=== PATIENT | male | born 1945 | race Hispanic/Latino ===

== ENCOUNTER 2017-10-08 13:58 | Observation (INO) | payer MEDICARE ==
[~2017-10-08] VITALS: Ht 170.2 cm; Wt 97.2 kg
[2017-10-08 14:44] LABS: BILIRUBIN,URINE NEGATIVE (NEGATIVE); CLARITY,URINE SL CLOUDY (CLEAR); COLOR,URINE YELLOW (YELLOW); KETONES,URINE NEGATIVE (NEGATIVE); LEUKOCYTE ESTERASE ,URINE NEGATIVE (NEGATIVE); NITRITE,URINE NEGATIVE (NEGATIVE); PROTEIN,URINE DIPSTICK NEGATIVE (NEGATIVE); URINE UROBILINOGEN 0.2 mg/dL (0.2 - 1)
[2017-10-08 15:27] LABS: BASOPHILS % 0.3 % (0.0-1.0); EOSINOPHILS # (AUTO) 0.1 (0.0-0.4); EOSINOPHILS % 1.7 % (0.0-6.0); HEMATOCRIT 36.9 % (38.2-49.6); HEMOGLOBIN 12.4 g/dL (14.0-18.0); LYMPHOCYTES # (AUTO) 1.1 (1.0-3.2); LYMPHOCYTES % 19.1 % (18.0-39.1); MEAN CORPUSCULAR HGB CONC 33.6 g/dL (31-35); MEAN CORPUSCULAR VOLUME 89.1 fL (81-99); MONOCYTES # (AUTO) 0.3 (0.2-0.8); MONOCYTES % 5.2 % (4.4-11.3); NEUTROPHILS # (AUTO) 4.3 (2.1-6.9); NEUTROPHILS % 73.4 % (38.7-80.0); PLATELET COUNT 219 x10e3/uL (140-360); RED BLOOD COUNT 4.14 x10e6/uL (4.3-5.7); RED CELL DISTRIBUTION WIDTH 13.2 % (11.7-14.4)
[2017-10-08 15:31] LABS: INR 1.03; PROTHROMBIN TIME 12.7 seconds (11.9-14.5)
[2017-10-08 15:32] LABS: PARTIAL THROMBOPLASTIN TIME 26.6 seconds (23.8-35.5)
[2017-10-08 15:39] LABS: ALANINE AMINOTRANSFERASE 29 IU/L (0-55); ALBUMIN 3.6 g/dL (3.5-5.0); ALBUMIN/GLOBULIN RATIO 1.2 (0.8-2.0); ALKALINE PHOSPHATASE 57 IU/L (40-150); ANION GAP 12.8 mmol/L (8-16); BLOOD UREA NITROGEN 15 mg/dL (7-26); BUN/CREATININE RATIO 15 (6-25); CALCIUM 9.3 mg/dL (8.4-10.2); CARBON DIOXIDE 22 mmol/L (22-29); CHLORIDE 107 mmol/L (98-107); CREATINE KINASE 538 IU/L (30-200); EST GLOMERULAR FILTRATION RATE > 60 ML/MIN (60-); GLUCOSE 133 mg/dL (74-118); POTASSIUM 3.8 mmol/L (3.5-5.1); SODIUM 138 mmol/L (136-145)
--- NOTE | 2017-10-08 16:40 | Diagnostic Imaging Report ---
PROCEDURE: A single AP view of the chest. COMPARISON: None. INDICATIONS: NAUSEA, DIARRHEA, FLANK PAIN FINDINGS: Lines/tubes: None. Lungs: The lungs are well-inflated. Mild central pulmonary venous congestion. Mild chronic scarring in the lung bases with possible interstitial lung disease. Pleura: There is no pleural effusion or pneumothorax. Heart and mediastinum: The heart and the mediastinum are unremarkable. Aorta is tortuous. Bones: No acute bony abnormality. IMPRESSION: Mild central pulmonary venous congestion. Mild chronic scarring in the lung bases with possible interstitial lung disease. Dictated by: Jay Barajas M.D. on 10/08/2017 at 16:43 Electronically approved by: Jay Barajas M.D. on 10/08/2017 at 16:43
--- NOTE | 2017-10-08 16:58 | Diagnostic Imaging Report ---
PROCEDURE: CT ABDOMEN AND PELVIS WITH CONTRAST TECHNIQUE: The abdomen and pelvis were scanned utilizing a multidetector helical scanner from the diaphragm to the lesser trochanter after the IV administration of 100 cc of Isovue 370 and the oral administration of water. Coronal and sagittal multiplanar reformations were obtained. COMPARISON: None. INDICATIONS: RT FLANK PAIN FINDINGS: LOWER THORAX: Bibasilar atelectasis especially in the right lower lobe. HEPATOBILIARY: Diffuse hepatic steatosis. 3 benign appearing cysts in the liver. 2.1 cm segment 2 (series 2 image 16). 1.8 cm in segment 4B (series 2 image 21). 1.6 cm in segment IVb (series 2 image 27). No biliary ductal dilatation. SPLEEN: No splenomegaly. PANCREAS: No focal masses or ductal dilatation. ADRENALS: No adrenal nodules. KIDNEYS/URETERS: No hydronephrosis, stones, or solid mass lesions. PELVIC ORGANS/BLADDER: Prostate measures 6.9 cm in transverse dimension with median lobe hypertrophy. Bladder is normal.. PERITONEUM / RETROPERITONEUM: No free air or fluid. LYMPH NODES: No lymphadenopathy. VESSELS: Mild mixed plaque in the abdominal aorta.. GI TRACT: No distention or wall thickening. Scattered colonic diverticula in the descending colon and sigmoid colon without evidence of diverticulitis. Small sliding hiatal hernia. BONES AND SOFT TISSUES: Small fat-containing umbilical hernia. Small fat-containing right inguinal hernia. Degenerative changes in lumbar spine. IMPRESSION: 1. No acute abnormalities identified in the abdomen or pelvis. 2. Small sliding hiatal hernia. 3. Diffuse hepatic steatosis. 4. Scattered colonic diverticula without evidence of diverticulitis. 5. Prostate is enlarged and with median lobe hypertrophy. 6. Right lower lobe atelectasis. Dictated by: aJy Barajas M.D. on 10/08/2017 at 17:01 Electronically approved by: Jay Barajas M.D. on 10/08/2017 at 17:01
[2017-10-08] MEDS ORDERED: ENOXAPARIN INJ 80 MG/0.8 ML SYR SC STA (17:37)
[2017-10-08] MEDS ORDERED: ASPIRIN 325 MG TAB PO ONE (17:45)
--- OUTSIDE RECORDS SUMMARY | 2017-10-08 17:57 | XMS REPORT ---
Author [facility] Address Unknown Phone Unavailable Care Team Providers Care Continuous Drier Operator Name Role Phone MARE CERVANTES Unavailable Unavailable Problems This patient has no known problems. Allergies, Adverse Reactions, Alerts This patient has no known allergies or adverse reactions. Medications This patient has no known medications. Results Test Description Test Time Test Comments Text Results Atomic Results Result Comments CT ABDOMEN/PELVIS W 2017-10-08 17:01:00 [place] [address] Patient Name: SARA OSHEA MR #: [id number] : 1945 Age/Sex: 72/M Req #: [id number] Adm Physician: Ordered by: GABBY ALVARADO NP Report #: [id number] Location: ER Room/Bed: _ Procedure: [id number] CT/CT ABDOMEN/PELVIS W Exam Date: 10/08/17 Exam Time: 1615 REPORT STATUS: Signed PROCEDURE: CT ABDOMEN AND PELVIS WITH CONTRAST TECHNIQUE: The abdomen and pelvis were scanned utilizing a multidetector helical scanner from the diaphragm to the lesser trochanter after the IV administration of 100 cc of Isovue 370 and the oral administration of water. Coronal and sagittal multiplanar reformations were obtained. COMPARISON: None. INDICATIONS: RT FLANK PAIN FINDINGS: LOWER THORAX: Bibasilar atelectasis especially in the right lower lobe. HEPATOBILIARY: Diffuse hepatic steatosis. 3 benign appearing cysts in the liver. 2.1 cm segment 2 (series 2 image 16). 1.8 cm in segment 4B (series 2 image 21). 1.6 cm in segment IVb (series 2 image 27). No biliary ductal dilatation. SPLEEN: No splenomegaly. PANCREAS: No focal masses or ductal dilatation. ADRENALS: No adrenal nodules. KIDNEYS/URETERS: No hydronephrosis, stones, or solid mass lesions. PELVIC ORGANS/BLADDER: Prostate measures 6.9 cm in transverse dimension with median lobe hypertrophy. Bladder is normal.. PERITONEUM / RETROPERITONEUM : No free air or fluid. LYMPH NODES: No lymphadenopathy. VESSELS: Mild mixed plaque in the abdominal aorta.. GI TRACT: No distention or wall thickening. Scattered colonic diverticula in the descending colon and sigmoid colon without evidence of diverticulitis. Small sliding hiatal hernia. BONES AND SOFT TISSUES: Small fat-containing umbilical hernia. Small fat-containing right inguinal hernia. Degenerative changes in lumbar spine. IMPRESSION: 1. No acute abnormalities identified in the abdomen or pelvis. 2. Small sliding hiatal hernia. 3. Diffuse hepatic steatosis. 4. Scattered colonic diverticula without evidence of diverticulitis. 5. Prostate is enlarged and with median lobe hypertrophy. 6. Right lower lobe atelectasis. Dictated by: Will Barajas M.D. on 2017 at 17:01 Electronically approved by: Will Barajas M.D. on 10/08/2017 at 17:01 Dictated By: WILL BARAJAS MD 00 Transcribed By: LETITIA on 10/08/17 170 COPY TO: GABBY ALVARADO NP CHEST SINGLE (PORTABLE) 2017-10-08 16:43:00 [place] [address] Patient Name: SARA OSHEA MR #: [id number] : 1945 Age/Sex : 72/M Req #: [id number] Adm Physician: Ordered by: GABBY ALVARADO NP Report #: [id number] Location: ER Room/Bed: Procedure: [id number] DX/CHEST SINGLE (PORTABLE) Exam Date: Exam Time: 1615 REPORT STATUS: Signed PROCEDURE: A single AP view of the chest. COMPARISON: None. INDICATIONS: NAUSEA, DIARRHEA, FLANK PAIN FINDINGS: Lines/tubes: None. Lungs: The lungs are well-inflated. Mild central pulmonary venous congestion. Mild chronic scarring in the lung bases with possible interstitial lung disease. Pleura: There is no pleural effusion or pneumothorax. Heart and mediastinum: The heart and the mediastinum are unremarkable. Aorta is tortuous. Bones: No acute bony abnormality. IMPRESSION: Mild central pulmonary venous congestion. Mild chronic scarring in the lung bases with possible interstitial lung disease. Dictated by: Will Barajas M.D. on 10/08/2017 at 16:43 Electronically approved by: Will Barajas M.D. on 10/08/2017 at 16:43 Dictated By: WILL BARAJAS MD 42 Transcribed By: LETITIA on 10/08/171642 COPY TO: GABBY ALVARADO NP
[2017-10-08] MEDS ORDERED: SODIUM CHLORIDE FLUSH 10 ML SYR INJ PRN (18:00)
[2017-10-08] MEDS ORDERED: ASPIRIN 81 MG CHEW TAB PO ONE (18:00)
[2017-10-08] MEDS ORDERED: MORPHINE SULFATE 2 MG/ML SYR IV PRN (18:30)
[2017-10-08] MEDS ORDERED: SODIUM CHLORIDE 0.9% 50ML 50 ML ONE (20:31)
[2017-10-08] MEDS ORDERED: IOPAMIDOL 370 MG/ML 200 ML INFUS..BTL INJ ONE (20:31)
[2017-10-08 20:54] VITALS: BP 148/94
[2017-10-08 22:45] VITALS: BP 148/94
[2017-10-08] MEDS ORDERED: HYDROCORTISONE 1% CREAM 30 GM TUBE TOP PRN (22:45)
[2017-10-08] MEDS ORDERED: DIPHENHYDRAMINE HCL 25 MG CAP PO PRN (22:45)
[2017-10-08] MEDS ORDERED: ONDANSETRON HCL INJ 2 MG/ML VIAL IV PRN (22:45)
[2017-10-08 22:56] LABS: CREATINE KINASE 465 IU/L (30-200)
[2017-10-09] VITALS (8 sets, daily range): BP systolic 98–151; BP diastolic 58–91
[2017-10-09] MEDS ORDERED: ASPIR 8181 MG PO (01:52)
[2017-10-09] MEDS ORDERED: MELOXICAM7.5 MG PO (01:52)
[2017-10-09] MEDS ORDERED: NAMENDA10 MG PO (01:52)
[2017-10-09] MEDS ORDERED: ULTRAM50 MG PO (01:52)
[2017-10-09] MEDS ORDERED: PRAVASTATIN SOD40 MG PO (01:52)
[2017-10-09] MEDS ORDERED: FINASTERIDE5 MG PO (01:52)
[2017-10-09] MEDS ORDERED: TAMSULOSIN HCL0.4 MG PO (01:52)
[2017-10-09] MEDS ORDERED: ZESTORETIC 20-1 EAC1 PO (01:52)
[2017-10-09] MEDS ORDERED: LORAZEPAM0.5 MG PO (01:52)
[2017-10-09 06:35] LABS: BASOPHILS % 0.2 % (0.0-1.0); EOSINOPHILS # (AUTO) 0.2 (0.0-0.4); EOSINOPHILS % 3.9 % (0.0-6.0); HEMOGLOBIN 12.2 g/dL (14.0-18.0); LYMPHOCYTES # (AUTO) 1.5 (1.0-3.2); LYMPHOCYTES % 26.4 % (18.0-39.1); MEAN CORPUSCULAR HEMOGLOBIN 30.1 pg (28-32); MEAN CORPUSCULAR HGB CONC 33.9 g/dL (31-35); MEAN CORPUSCULAR VOLUME 88.9 fL (81-99); MONOCYTES # (AUTO) 0.6 (0.2-0.8); MONOCYTES % 9.8 % (4.4-11.3); NEUTROPHILS # (AUTO) 3.4 (2.1-6.9); PLATELET COUNT 215 x10e3/uL (140-360); RED BLOOD COUNT 4.05 x10e6/uL (4.3-5.7); RED CELL DISTRIBUTION WIDTH 13.3 % (11.7-14.4)
[2017-10-09 07:07] LABS: ANION GAP 10.6 mmol/L (8-16); BLOOD UREA NITROGEN 14 mg/dL (7-26); BUN/CREATININE RATIO 14 (6-25); CALCIUM 9.3 mg/dL (8.4-10.2); CARBON DIOXIDE 24 mmol/L (22-29); CHLORIDE 106 mmol/L (98-107); CREATINE KINASE 371 IU/L (30-200); CREATININE, SERUM 1.03 mg/dL (0.72-1.25); EST GLOMERULAR FILTRATION RATE > 60 ML/MIN (60-); GLUCOSE 102 mg/dL (74-118); POTASSIUM 3.6 mmol/L (3.5-5.1); SODIUM 137 mmol/L (136-145)
[2017-10-09] MEDS: SODIUM CHLORIDE 0.9% 1000ML 1,000 ML IV SCH (08:09)
[2017-10-09] MEDS: FAMOTIDINE 20 MG TAB PO SCH ×2 (08:09→17:46)
[2017-10-09] MEDS: ASPIRIN 325 MG TAB EC PO SCH (08:09)
--- NOTE | 2017-10-09 08:14 | History and Physical ---
PRIMARY CARE PHYSICIAN: Dr. Linn CHIEF COMPLAINT: Right flank pain. HISTORY OF PRESENT ILLNESS: This is a 72-year-old man with a history of hypertension now developing right flank pain for the past 2 weeks. No fever, but has had chills, nausea and diarrhea. The patient denies any vomiting. Came to the hospital for further evaluation and management. PAST MEDICAL HISTORY: Hypertension, hyperlipidemia. PAST SURGICAL HISTORY: None. ALLERGIES: PER ELECTRONIC MEDICAL RECORD. FAMILY HISTORY/SOCIAL HISTORY: Patient is . He has 2 children. Quit alcohol. No cigarettes. No illicits. MEDICATIONS: Per electronic medical record. REVIEW OF SYSTEMS: Denies any dizziness or chest pain. PHYSICAL EXAMINATION VITAL SIGNS: Reviewed. GENERAL: A tired-appearing man resting in bed. HEENT: Anicteric. Pupils respond to light. No oral lesions. CARDIOVASCULAR: Normal S1 and S2. LUNGS: Moderate breath sounds. ABDOMEN: Soft and nondistended. He has equivocal Mcneal's sign. He has right flank tenderness. EXTREMITIES: No edema or calf tenderness. NEUROLOGICAL: Alert and appropriate. Moving all extremities. SKIN: Dry. PSYCHIATRIC: Flat affect. LABS: Reviewed. MEDICATIONS: Reviewed. ASSESSMENT: This is a 72-year-old man with: 1. Acute rhabdomyolysis. 2. Small sliding hiatal hernia. 3. Hepatic steatosis. 4. Diverticulosis. 5. Enlarged prostate. 6. Right lower lobe atelectasis. 7. Normocytic anemia. 8. Obesity. PLAN 1. Rehydrate the patient. 2. Treat right abdominal pain. 3. May need ultrasound of the right flank and right abdomen to evaluate for cholelithiasis. 4. Screen for diabetes. 5. Obtain lipid panel. 6. Urinalysis was negative for any signs of infection. 7. CT scan did not reveal any kidney stones. Will obtain ultrasound. 8. Right lower lobe atelectasis could be the etiology of his symptoms. 9. Will use Lovenox and Pepcid for prophylaxis. 10. Disposition. Follow up testing. Job#: [id number] KELLY
--- NOTE | 2017-10-09 12:47 | Diagnostic Imaging Report ---
PROCEDURE:US ABDOMEN LIMITED COMPARISON:[facility], CT, CT ABDOMEN/PELVIS W, 10/08/2017, 16:14. INDICATIONS:Equivocal Mcneal Sign TECHNIQUE: Rodriguez-scale and color doppler transverse and longitudinal images of the right upper quadrant of the abdomen were obtained. FINDINGS: Exam limited by overlying bowel gas. Liver: 18.9 cm in right mid-clavicular line. Normal echogenicity. 2 cystic lesions are noted: * 1.6 x 1.1 x 1.6 cm cystic anechoic lesion adjacent to the gallbladder * 1.9 x 1.4 x 1.5 cm mostly anechoic lesion with questionable single thin septation in the right hepatic lobe. Main portal vein: 1.2 cm, hepatopetal flow Gallbladder: No stones, sludge, wall thickening, or pericholecystic fluid Common Bile Duct: 0.5 cm Sonographic Mcneal's sign: Negative Right kidney: 11.8 cm. Normal echogenicity. No solid masses or hydronephrosis. 1.5 x 1.1 x 1.1 cm cystic, anechoic lesion in the right renal pelvis, likely representing a peripelvic cyst. Pancreas: Obscured by overlying bowel gas. Inferior vena cava: Obscured by overlying bowel gas Aorta: Obscured by overlying bowel gas Ascites: None in the right upper quadrant of the abdomen. CONCLUSION: 1. Limited visualization of the midline structures secondary to overlying bowel gas. 2. Hepatomegaly. Simple cystic lesion adjacent to the gallbladder and minimally complex cyst in the right hepatic lobe. 3. No sonographic evidence of cholelithiasis or cholecystitis. 4. 1.5 cm right peripelvic cyst Dimsa Nelson M.D. Dictated by: Dimas Nelson M.D. on 10/09/2017 at 12:50 Electronically approved by: Dimas Nelson M.D. on 10/09/2017 at 12:50
[2017-10-09 14:51] LABS: CREATINE KINASE 321 IU/L (30-200)
[2017-10-09] MEDS ORDERED: ENOXAPARIN SOD INJ 40 MG/0.4 ML SYR SC SCH (17:00)
[2017-10-10] VITALS: BP 135/82
[2017-10-10] MEDS: SODIUM CHLORIDE 0.9% 1000ML 1,000 ML IV SCH (05:40)
[2017-10-10 05:59] VITALS: BP 135/73
[2017-10-10] MEDS ORDERED: FAMOTIDINE20 MG PO (07:03)
[2017-10-10 07:55] VITALS: BP 133/81
[2017-10-10] MEDS: ASPIRIN 325 MG TAB EC PO SCH (07:59)
[2017-10-10] MEDS: FAMOTIDINE 20 MG TAB PO SCH (07:59)
[2017-10-10 08:04] VITALS: BP 133/81
--- NOTE | 2017-10-10 10:14 | Discharge Summary ---
PRINCIPAL DIAGNOSES 1. Acute rhabdomyolysis. 2. Sliding hiatal hernia. 3. Hepatic steatosis. 4. Diverticulosis. 5. Enlarged prostate. 6. Right lower lobe atelectasis. 7. Normocytic anemia. 8. Obesity. SECONDARY DIAGNOSIS: Obesity. CHIEF COMPLAINT: Right flank pain. HISTORY OF PRESENT ILLNESS: This is a 72-year-old man with right flank pain. Refer to the H and P for further details. HOSPITAL COURSE: The patient was found to have acute rhabdomyolysis. He had a small sliding hiatal hernia, hepatic steatosis and diverticulosis. He had an enlarged prostate and right lower lobe atelectasis. He had obesity and normocytic anemia. His CPK has been improving with rehydration. Ultrasound of the abdomen and CT scan did not reveal any stones or any obstruction. The patient s doing better. The symptoms are almost resolved, and he is currently appropriate for discharge. DISCHARGE MEDICATIONS: Per electronic medical record. FOLLOWUP: With primary care doctor in 1 week. DISCHARGE INSTRUCTIONS: Hydrate before, during and after prolonged exposure to the sun, regular rest and exercise. DAV HALL MD Job#: [id number]
== END 2017-10-10 09:10 | disposition home or self-care (01) ==
LOC: ER 13:58 → ERHOLD 17:54 → MED/SURG 19:47
PROVIDERS: ADMIT Internal Medicine; ATTEND Internal Medicine
DX: M62.82 Rhabdomyolysis (principal); K44.9 Diaphragmatic hernia without obstruction or gangrene; K76.0 Fatty (change of) liver, not elsewhere classified; K57.90 Diverticulosis of intestine, part unspecified, without perforation or abscess without bleeding; J98.11 Atelectasis; D64.9 Anemia, unspecified; E66.9 Obesity, unspecified; N40.0 Benign prostatic hyperplasia without lower urinary tract symptoms; Z68.33 Body mass index [BMI] 33.0-33.9, adult
CPT/HCPCS: 36415 ×2; 71045; 74177; 76705; 80048; 80053; 80061; 81001; 82550 ×2; 82553 ×2; 82948; 83036; 84484 ×2; 85025 ×2; 85610; 85730; 93005; 99284; G0378 ×3; J1650 ×2; J2270; J7030 ×2; Q9967

== ENCOUNTER → 2019-06-17 | Day surgery (SDC) | payer MEDICARE ==
[~2019-06-17] MED LIST: ASPIR 8181 MG PO; BALANCED SALT SOLN (OPTH) 15 ML BTL IO ONE; BUSPAR PO; CRESTOR10 MG PO; CYCLOBENZAPRINE10 MG PO; FAMOTIDINE20 MG PO; FENTANYL CITRATE/PF 100MCG/2 ML INJ ONE; FINASTERIDE5 MG PO; LIDOCAINE 2% /EPINEPHRINE 20 ML SDV INJ ONE; LORAZEPAM0.5 MG PO; LOSARTAN POTASS25 MG PO; MECLIZINE HCL12.5 MG PO; MELOXICAM7.5 MG PO; MIDAZOLAM HCL 2 MG/2 ML VIAL ONE; NAMENDA10 MG PO; NEOMYCIN/POLYMYXIN/DEX (OPTH) 3.5 GM TUBE ONE; POVIDONE IODINE 5% (OPTH) 30 ML BTL ONE; PRAVASTATIN SOD40 MG PO; TAMSULOSIN HCL0.4 MG PO; ULTRAM50 MG PO; ZESTORETIC 20-1 EAC1 PO
[2019-06-17 15:30] VITALS: BP 135/83
--- NOTE | 2019-06-27 19:46 | Operative Report ---
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 PROCEDURES PERFORMED: 1. Pterygium excision, left eye nasal. 2. Amniotic membrane graft placement, left eye nasal. 3. Superficial keratectomy, left eye nasal. 4. Mitomycin C 0.25 mg/mL left eye nasal, 60 seconds. ANESTHESIA: MAC. COMPLICATIONS: None. DESCRIPTION OF PROCEDURE: The patient was taken to the operating room, where they had tetracaine drops placed in the eye. The patient's eye was prepped and draped in the usual sterile ophthalmic fashion. Lid speculum was placed in the left eye. A 6-0 sterile stay suture was placed at the limbus and the pterygium was localized and marked using a marking pen. 0.2 mL of lidocaine 2% with epinephrine were injected to the pterygium. The pterygium was removed using 0.12 forceps and Veto scissors. The pterygium was then sent to pathology. Wet-field cautery was used to control any bleeding. A superficial keratectomy was used to remove the residual debris from the cornea. Mitomycin 0.025% was placed on the edge of the conj for 60 seconds. Copious amounts of BSS solution were used to irrigate this off. The amniotic membrane measured 10 x 15 mm. It was secured using fibrin and thrombin glue. Excess glue and tissue were cut to size using 0.12 forceps and Veto scissors. The patient had Maxitrol ointment and a patch of Hunt shield placed on the eye. He tolerated procedure well. The patient's amniotic membrane serial number is [id number]. Saleem Oliveira MD SES/MODL /[id number]
== END | disposition home or self-care (01) ==
LOC: OR 11:23
PROVIDERS: ATTEND Ophthalmology
DX: H11.052 Peripheral pterygium, progressive, left eye (principal); I10 Essential (primary) hypertension; E78.5 Hyperlipidemia, unspecified; R73.09 Other abnormal glucose; N39.0 Urinary tract infection, site not specified; K21.9 Gastro-esophageal reflux disease without esophagitis; D64.9 Anemia, unspecified; G47.33 Obstructive sleep apnea (adult) (pediatric); G89.29 Other chronic pain; E66.01 Morbid (severe) obesity due to excess calories; K44.9 Diaphragmatic hernia without obstruction or gangrene; F32.9 Major depressive disorder, single episode, unspecified; F41.9 Anxiety disorder, unspecified; Z13.89 Encounter for screening for other disorder; Z68.33 Body mass index [BMI] 33.0-33.9, adult
CPT/HCPCS: 65426; 88304; J2001; J2250; J3010; V2790

== ENCOUNTER → 2019-07-01 | Day surgery (SDC) | payer MEDICARE ==
[~2019-07-01] MED LIST changes: -BALANCED SALT SOLN (OPTH) 15 ML BTL IO ONE; -LIDOCAINE 2% /EPINEPHRINE 20 ML SDV INJ ONE; -NEOMYCIN/POLYMYXIN/DEX (OPTH) 3.5 GM TUBE ONE; +OR PHACO EYE KIT ONE; -POVIDONE IODINE 5% (OPTH) 30 ML BTL ONE; +PREOP PHACO EYE KIT ONE
[2019-07-01 15:20] VITALS: BP 130/82
== END | disposition home or self-care (01) ==
LOC: OR 12:14
PROVIDERS: ATTEND Ophthalmology
DX: H25.11 Age-related nuclear cataract, right eye (principal); G47.33 Obstructive sleep apnea (adult) (pediatric); D64.9 Anemia, unspecified; R73.09 Other abnormal glucose; N39.0 Urinary tract infection, site not specified; K21.9 Gastro-esophageal reflux disease without esophagitis; K44.9 Diaphragmatic hernia without obstruction or gangrene; E78.5 Hyperlipidemia, unspecified; I10 Essential (primary) hypertension; F41.9 Anxiety disorder, unspecified; F32.9 Major depressive disorder, single episode, unspecified; Z68.33 Body mass index [BMI] 33.0-33.9, adult
CPT/HCPCS: 66984; J2250; J3010

== ENCOUNTER 2024-05-21 12:46 | Inpatient (IN) | payer MEDICARE ==
[2024-05-19 14:50] LABS: BASOPHILS % 0.4 % (0.0-1.0); EOSINOPHILS # (AUTO) 0.2 (0.0-0.4); EOSINOPHILS % 2.1 % (0.0-6.0); HEMATOCRIT 42.8 % (38.2-49.6); HEMOGLOBIN 13.5 g/dL (14.0-18.0); LYMPHOCYTES # (AUTO) 1.4 (1.0-3.2); LYMPHOCYTES % 17.6 % (18.0-39.1); MEAN CORPUSCULAR HEMOGLOBIN 28.7 pg (28-32); MEAN CORPUSCULAR HGB CONC 31.5 g/dL (31-35); MEAN CORPUSCULAR VOLUME 91.1 fL (81-99); MONOCYTES # (AUTO) 0.8 (0.2-0.8); MONOCYTES % 10.1 % (4.4-11.3); NEUTROPHILS # (AUTO) 5.3 (2.1-6.9); PLATELET COUNT 216 x10e3/uL (140-360); RED CELL DISTRIBUTION WIDTH 14.5 % (11.7-14.4); WHITE BLOOD COUNT 7.69 x10e3/uL (4.8-10.8)
[2024-05-19 15:27] LABS: ANION GAP 14.9 mmol/L (8-16); CREATININE, SERUM 1.29 mg/dL (0.72-1.25); POTASSIUM 3.9 mmol/L (3.5-5.1)
[~2024-05-21] VITALS: Ht 170.2 cm; Wt 100.4 kg
[~2024-05-21 12:46] MED LIST changes: +ARICEPT5 MG PO; +BENICAR5 MG PO; -FENTANYL CITRATE/PF 100MCG/2 ML INJ ONE; +FLOMAX0.4 MG PO; +FLONASE ALLERG9.9 ML INH; +LYRICA50 MG PO; +METFORMIN HCL500 MG PO; -MIDAZOLAM HCL 2 MG/2 ML VIAL ONE; -OR PHACO EYE KIT ONE; -PREOP PHACO EYE KIT ONE; +TRAZODONE HCL150 MG PO
[2024-05-21] MEDS: SODIUM CHLORIDE 0.9% 1000ML 1,000 ML ONE ×2 (13:35→13:38)
[2024-05-21] MEDS: CEFTRIAXONE 1 GM VIAL ONE (13:36)
[2024-05-21] MEDS: GENTAMICIN 80MG/NS 100 ML 200 ML IV ONE (13:38)
[2024-05-21] MEDS ORDERED: ACETAMINOPHEN 1000 MG/100 ML 100 ML IV ONE (16:27)
[2024-05-21] MEDS ORDERED: SEVOFLURANE INHAL SOLN 250 ML PEN BTL ONE (16:27)
[2024-05-21] MEDS ORDERED: LIDOCAINE HCL 2% LOCAL INJ 5 ML SDV VIAL INJ ONE (16:27)
[2024-05-21] MEDS ORDERED: FENTANYL CITRATE/PF 100MCG/2 ML INJ ONE ×2 (16:27→17:09)
[2024-05-21] MEDS ORDERED: PROPOFOL IV EMULSION 10 MG/ML 20 ML VIAL ONE (16:27)
[2024-05-21] MEDS ORDERED: EPHEDRINE SULFATE INJ 50 MG/ML VIAL ONE (17:15)
[2024-05-21] MEDS ORDERED: DIPHENHYDRAMINE HCL 25 MG CAP PO PRN (17:15)
[2024-05-21] MEDS ORDERED: ACETAMINOPHEN 1000 MG/100 ML IV PRN (17:15)
[2024-05-21] MEDS ORDERED: ONDANSETRON HCL INJ 2MG/ML 2ML 2 MG/ML VIAL IV PRN (17:15)
[2024-05-21] MEDS ORDERED: METOCLOPRAMIDE HCL 10 MG/2ML VIAL ONE (17:48)
[2024-05-21 18:49] LABS: BASOPHILS % 0.2 % (0.0-1.0); EOSINOPHILS # (AUTO) 0.1 (0.0-0.4); EOSINOPHILS % 1.4 % (0.0-6.0); HEMATOCRIT 40.2 % (38.2-49.6); LYMPHOCYTES # (AUTO) 1.5 (1.0-3.2); LYMPHOCYTES % 19.2 % (18.0-39.1); MEAN CORPUSCULAR HGB CONC 29.9 g/dL (31-35); MEAN CORPUSCULAR VOLUME 97.1 fL (81-99); MONOCYTES # (AUTO) 0.6 (0.2-0.8); MONOCYTES % 7.2 % (4.4-11.3); NEUTROPHILS # (AUTO) 5.7 (2.1-6.9); NEUTROPHILS % 71.4 % (38.7-80.0); PLATELET COUNT 173 x10e3/uL (140-360); RED BLOOD COUNT 4.14 x10e6/uL (4.3-5.7); RED CELL DISTRIBUTION WIDTH 14.5 % (11.7-14.4); WHITE BLOOD COUNT 8.04 x10e3/uL (4.8-10.8)
[2024-05-21 19:12] LABS: ANION GAP 14.9 mmol/L (8-16); CALCIUM 9.1 mg/dL (8.4-10.2); CREATININE, SERUM 1.15 mg/dL (0.72-1.25); POTASSIUM 3.9 mmol/L (3.5-5.1)
[2024-05-21 19:31] VITALS: BP 144/80; PULSE 70; RESP 14; TEMP 97.7; O2SAT 97
[2024-05-21 19:35] VITALS: PULSE 66; RESP 18; O2SAT 100
[2024-05-21 20:00] VITALS: BP 142/91; PULSE 67; RESP 16; TEMP 97.5; O2SAT 99
[2024-05-21] MEDS: SODIUM CHLORIDE 0.9% 1000ML 1,000 ML IV SCH (20:05)
[2024-05-21] MEDS: ACETAMINOPHEN/CODEINE 300MG - 30MG TAB PO PRN (21:09)
[2024-05-22] VITALS (11 sets, daily range): BP systolic 107–145; BP diastolic 67–82; PULSE 6–83; RESP 16–20; TEMP 97.5–99.9; O2SAT 96–99
[2024-05-22 06:12] LABS: BASOPHILS % 0.2 % (0.0-1.0); EOSINOPHILS # (AUTO) 0.1 (0.0-0.4); EOSINOPHILS % 0.9 % (0.0-6.0); HEMATOCRIT 38.4 % (38.2-49.6); HEMOGLOBIN 11.6 g/dL (14.0-18.0); LYMPHOCYTES # (AUTO) 0.9 (1.0-3.2); MEAN CORPUSCULAR HGB CONC 30.2 g/dL (31-35); MONOCYTES % 9.8 % (4.4-11.3); NEUTROPHILS # (AUTO) 7.8 (2.1-6.9); NEUTROPHILS % 79.7 % (38.7-80.0); PLATELET COUNT 169 x10e3/uL (140-360); RED CELL DISTRIBUTION WIDTH 14.5 % (11.7-14.4); WHITE BLOOD COUNT 9.82 x10e3/uL (4.8-10.8)
[2024-05-22 06:29] LABS: ANION GAP 12.9 mmol/L (8-16); CALCIUM 9.1 mg/dL (8.4-10.2); CREATININE, SERUM 1.02 mg/dL (0.72-1.25); POTASSIUM 3.9 mmol/L (3.5-5.1)
[2024-05-22] MEDS: SENNA-S TABLET PO SCH (08:22)
[2024-05-22] MEDS ORDERED: OLMESARTAN MEDOX5 MG PO (11:43)
[2024-05-22] MEDS ORDERED: TAMSULOSIN PO (11:43)
[2024-05-22] MEDS ORDERED: METFORMIN HCL500 M1 PO (11:43)
[2024-05-22] MEDS ORDERED: ULTRAM 50MG50 MG PO (11:43)
[2024-05-22] MEDS ORDERED: DONEPEZIL HCL5 MG PO (11:43)
[2024-05-22] MEDS ORDERED: ROSUVASTATIN CA40 MG PO (11:43)
[2024-05-23] VITALS (11 sets, daily range): BP systolic 108–158; BP diastolic 67–87; PULSE 60–90; RESP 16–21; TEMP 97.3–99.1; O2SAT 95–100
[2024-05-23 06:23] LABS: BASOPHILS % 0.2 % (0.0-1.0); EOSINOPHILS # (AUTO) 0.2 (0.0-0.4); EOSINOPHILS % 2.3 % (0.0-6.0); HEMATOCRIT 35.2 % (38.2-49.6); HEMOGLOBIN 11.3 g/dL (14.0-18.0); LYMPHOCYTES % 10.2 % (18.0-39.1); MEAN CORPUSCULAR HEMOGLOBIN 28.9 pg (28-32); MEAN CORPUSCULAR HGB CONC 32.1 g/dL (31-35); MONOCYTES # (AUTO) 1.4 (0.2-0.8); MONOCYTES % 13.9 % (4.4-11.3); NEUTROPHILS # (AUTO) 7.2 (2.1-6.9); NEUTROPHILS % 72.9 % (38.7-80.0); PLATELET COUNT 158 x10e3/uL (140-360); RED BLOOD COUNT 3.91 x10e6/uL (4.3-5.7); RED CELL DISTRIBUTION WIDTH 14.6 % (11.7-14.4); WHITE BLOOD COUNT 9.84 x10e3/uL (4.8-10.8)
[2024-05-23 06:51] LABS: ANION GAP 12.7 mmol/L (8-16); CREATININE, SERUM 1.12 mg/dL (0.72-1.25); POTASSIUM 3.7 mmol/L (3.5-5.1)
[2024-05-23] MEDS ORDERED: ACETAMINOPHEN 325 MG TAB PO PRN (14:45)
[2024-05-23] MEDS ORDERED: DOCUSATE SODIUM 100 MG CAP PO PRN (14:45)
[2024-05-23] MEDS ORDERED: ALBUTEROL/IPRATROPIUM 3 ML NEB NEB PRN (14:45)
[2024-05-23] MEDS ORDERED: ATORVASTATIN 40 MG TAB PO SCH (21:00)
[2024-05-23] MEDS ORDERED: DONEPEZIL HCL 5 MG TAB PO SCH (21:00)
[2024-05-23] MEDS ORDERED: MELATONIN 3 MG TAB PO PRN (21:00)
[2024-05-24] MEDS ORDERED: FINASTERIDE 5 MG TAB PO SCH (09:00)
[2024-05-24] MEDS ORDERED: TAMSULOSIN HCL 0.4 MG CAP PO SCH (09:00)
== END 2024-05-23 21:35 | disposition home or self-care (01) | DRG 713 ==
LOC: OR 12:46 → PACU V 17:12 → MED/SURG3 19:00
PROVIDERS: ADMIT Urology; ATTEND Urology
PROC: 0T7D8ZZ Dilation of Urethra, Via Natural or Artificial Opening Endoscopic (ICD-10-PCS; 2024-05-21)
PROC: BT141ZZ Fluoroscopy of Kidneys, Ureters and Bladder using Low Osmolar Contrast (ICD-10-PCS; 2024-05-21)
PROC: 0VB08ZZ Excision of Prostate, Via Natural or Artificial Opening Endoscopic (ICD-10-PCS; principal; 2024-05-21 16:56)
DX: N40.1 Benign prostatic hyperplasia with lower urinary tract symptoms (principal); N13.8 Other obstructive and reflux uropathy; N39.0 Urinary tract infection, site not specified; N32.89 Other specified disorders of bladder; R35.0 Frequency of micturition; N35.912 Unspecified bulbous urethral stricture, male; R31.0 Gross hematuria; R31.29 Other microscopic hematuria; E86.0 Dehydration; N39.41 Urge incontinence; R39.14 Feeling of incomplete bladder emptying; R35.1 Nocturia; D64.89 Other specified anemias; I12.9 Hypertensive chronic kidney disease with stage 1 through stage 4 chronic kidney disease, or unspecified chronic kidney disease; E11.22 Type 2 diabetes mellitus with diabetic chronic kidney disease; N18.9 Chronic kidney disease, unspecified; E11.51 Type 2 diabetes mellitus with diabetic peripheral angiopathy without gangrene; Z79.84 Long term (current) use of oral hypoglycemic drugs; F03.90 Unspecified dementia, unspecified severity, without behavioral disturbance, psychotic disturbance, mood disturbance, and anxiety; E78.00 Pure hypercholesterolemia, unspecified; E66.9 Obesity, unspecified; Z68.34 Body mass index [BMI] 34.0-34.9, adult; G47.33 Obstructive sleep apnea (adult) (pediatric); Z90.79 Acquired absence of other genital organ(s); Z79.899 Other long term (current) drug therapy
CPT/HCPCS: 36415; 71046; 74420; 80048; 82948; 83735; 85025; 88305; 93005; 94799; J0696; J1580; J2003; J2405; J2765; J7030